=== PATIENT | female | born 1940 | race Caucasian/White ===

== ENCOUNTER 2016-09-25 07:13 | Day surgery (SDC) | payer MEDICARE, OTHER ==
[~2016-09-25] VITALS: Ht 160 cm; Wt 84.0 kg
--- NOTE | ~2016-09-25 | OR ---
ADMIT: 09/25/2016 RM/LOC: [facility] MR#: [id number] [address] [address] [place] [address] Operative/Delivery Room Report SEX: F AGE: 76 : 1940 SURGERY DATE: 09/25/2016 SURGEON: Darnell Haq MD PROCEDURE: Esophagogastroduodenoscopy with biopsies. PREOPERATIVE DIAGNOSIS: Anemia. POSTOPERATIVE DIAGNOSIS: Normal esophagogastroduodenoscopy. DESCRIPTION OF PROCEDURE: The patient was brought to the procedure room, placed in left lateral decubitus position. Informed consent had been obtained preoperatively. The risks and benefits including, but not limited to, perforation, sedation, bleeding were discussed with the patient and agreed upon. All questions were answered, alternatives discussed, the patient agreed. Monitored anesthesia care was provided by Dr. Mercedes with propofol. Olympus videoendoscope, model GIF-XQ180 was passed to the level cricopharyngeus using finger guidance. Then, using direct visualization, scope was passed to the length of the esophagus where no abnormalities, esophageal mucosa, esophageal varices, or hiatal hernia were identified. There was a widely patent Schatzki B ring present. The stomach was entered, air was insufflated, fundic pool was suctioned. There was some flecks of blood in the stomach, but no lesions were identified. Biopsies were taken in the antrum to rule out occult Helicobacter infection. The pyloric sphincter was round, small, opened, and closed appropriately. Duodenal bulb was entered, inspected through the second part. No abnormalities were identified, but biopsies were taken to rule out occult celiac disease. The scope was withdrawn in the stomach and retroflexed in the cardia where no abnormalities were identified. The scope was removed and the patient tolerated the procedure well. No complications were expected. Blood loss was less than 1 mL. She will call me in 1 week for her biopsy report, or sooner if she should have any postoperative problems. We will now proceed with colonoscopy on this patient due to her history of anemia. Darnell Haq MD/ adelso JOB #: [id number] CC: Darnell Haq, Attending Physician Reji Naik, Family Physician Reji Naik MD
[~2016-09-25 07:13] MED LIST: ALDACTONE50 MG PO; AMBIEN DPS10 MG PO; ASA325 MG PO; AZITHROMYCIN500 MG PO; CALCIUM CARBON600 MG PO; CARVEDILOL12.5 MG PO; CHERATUSSIN AC473 ML PO; COZAAR DPS50 MG PO; CRESTOR10 MG PO; DESYREL-DPS50 MG PO; GLUCOPHAGE XR500 MG PO; METFORMIN HCL500 M2 PO; NITROSTAT0.4 MG PO; NORVASC DPS10 MG PO; PRILOSEC20 MG PO; SYMBICORT160 MCG/6 IH; THERA1 EACH PO
--- NOTE | 2016-09-26 08:59 | OR ---
ADMIT: 09/25/2016 RM/LOC: [facility] MR#: [id number] [address] [address] [place] [address] Operative/Delivery Room Report SEX: F AGE: 76 : 1940 SURGERY DATE: 09/25/2016 SURGEON: Darnell Haq MD PROCEDURE: Flexible sigmoidoscopy. PREOPERATIVE DIAGNOSIS: Anemia. POSTOPERATIVE DIAGNOSIS: Extensive left-sided diverticulosis with spasm. PROCEDURE IN DETAIL: The patient had been previously gastroscoped. Once again, monitored anesthesia care with propofol was provided by Dr. Mercedes. Anal inspection and digital examination revealed no abnormalities or obstructing masses. Olympus videoendoscope, model CF-[id number] inserted through the rectum and advanced to the mid sigmoid where there was extensive spasm and diverticulosis present. Multiple attempts at repositioning the patient to pass this spasmodic area were unsuccessful. Then a GIF-XQ180 was passed through this level, and once again, was not successful in negotiating the spasmodic sigmoid area. The procedure was terminated. No mucosal abnormalities were identified. The patient tolerated the procedure well. No complications were expected. We will now proceed with barium enema on this patient in followup. Darnell Haq MD/ adelso JOB #: [id number] CC: Darnell Haq, Attending Physician Reji Naik, Family Physician Reji Naik MD
== END 2016-09-25 11:40 | disposition home or self-care (01) ==
LOC: SSS 07:13
PROC: 0DJD8ZZ Inspection of Lower Intestinal Tract, Via Natural or Artificial Opening Endoscopic (ICD-10-PCS; principal; 2016-09-25)
PROC: 0DB98ZX Excision of Duodenum, Via Natural or Artificial Opening Endoscopic, Diagnostic (ICD-10-PCS; principal; 2016-09-25)
PROC: 0DB68ZX Excision of Stomach, Via Natural or Artificial Opening Endoscopic, Diagnostic (ICD-10-PCS; principal; 2016-09-25)
DX: K57.30 Diverticulosis of large intestine without perforation or abscess without bleeding (principal); K29.50 Unspecified chronic gastritis without bleeding; D64.9 Anemia, unspecified; I10 Essential (primary) hypertension; I25.2 Old myocardial infarction; E11.9 Type 2 diabetes mellitus without complications; Z90.49 Acquired absence of other specified parts of digestive tract; Z90.710 Acquired absence of both cervix and uterus; Z98.890 Other specified postprocedural states

== ENCOUNTER → 2016-09-26 | Outpatient (CLI) | payer MEDICARE, OTHER | END | disposition home or self-care (01) | LOC: RAD.S 10:06 | DX: D64.9 Anemia, unspecified (principal); K57.30 Diverticulosis of large intestine without perforation or abscess without bleeding ==

== ENCOUNTER → 2016-12-05 | Outpatient (CLI) | payer MEDICARE, OTHER | END | disposition home or self-care (01) | LOC: RAD.S 10:27 | DX: R10.13 Epigastric pain (principal); R16.0 Hepatomegaly, not elsewhere classified; K76.0 Fatty (change of) liver, not elsewhere classified; D50.0 Iron deficiency anemia secondary to blood loss (chronic); Z90.49 Acquired absence of other specified parts of digestive tract ==

== ENCOUNTER → 2016-12-06 | Outpatient (CLI) | payer MEDICARE, OTHER | END | disposition home or self-care (01) | LOC: RAD.S 09:00 | DX: Z12.31 Encounter for screening mammogram for malignant neoplasm of breast (principal); Z80.3 Family history of malignant neoplasm of breast ==

== ENCOUNTER 2016-12-09 07:25 | Emergency (ER) | payer MEDICARE, OTHER ==
--- NOTE | 2016-12-16 17:48 | ER ---
ADMIT: 12/09/2016 RM/LOC: [facility] MR#: [id number] [address] [address] [place] [address] Emergency Room Report SEX: F AGE: 76 : 1940 DATE: 12/09/2016 ADDENDUM: A 76-year-old white female, who got into weeds or something, started to have that was just a sort of rash about 3 this morning. She is itchy, hives all over essentially. We gave her Benadryl 50, Epinephrine 0.2 mg IM, and Decadron 20 IM. This should hold her. She is also going to have a CT on Sunday, so she is going to take the steroid on Sunday which should not be a problem. She is diabetic, so I told her this is going to make her blood sugars run high for a while. If any other problems, she should recheck sooner. CONDITION ON DISCHARGE: Good. Reji Calles MD/ adelso JOB #: [id number] CC: Reji Calles MD, Attending Physician
== END 2016-12-09 08:30 | disposition home or self-care (01) ==
LOC: ER 07:25
DX: L50.0 Allergic urticaria (principal); E11.9 Type 2 diabetes mellitus without complications; I10 Essential (primary) hypertension; Z86.79 Personal history of other diseases of the circulatory system; Z91.040 Latex allergy status

== ENCOUNTER → 2016-12-12 | Outpatient (CLI) | payer MEDICARE, OTHER | END | disposition home or self-care (01) | LOC: RAD.S 09:39 | DX: R93.5 Abnormal findings on diagnostic imaging of other abdominal regions, including retroperitoneum (principal); R10.13 Epigastric pain; K76.0 Fatty (change of) liver, not elsewhere classified; R91.8 Other nonspecific abnormal finding of lung field ==